=== PATIENT | female | born 1960 | race Caucasian/White ===

== ENCOUNTER 2017-12-22 19:31 | Emergency (ER) | payer OTHER ==
[2017-12-22] MEDS: IBUPROFEN 600 MG TAB PO (22:32)
[2017-12-22] MEDS: ONDANSETRON (ODT) 4 MG TAB ODT (22:32)
== END 2017-12-22 23:00 | disposition home or self-care (01) ==
LOC: FTE 19:31
DX: B02.9 Zoster without complications (principal); E11.9 Type 2 diabetes mellitus without complications; Z79.84 Long term (current) use of oral hypoglycemic drugs
CPT/HCPCS: 99284; Z7502

== ENCOUNTER 2018-05-19 08:55 | Day surgery (SDC) | payer OTHER ==
[2018-05-19] MEDS ORDERED: MIDAZOLAM 1 MG/ML 2 ML INJ ×3 (11:41→11:42)
[2018-05-19] MEDS ORDERED: FENTAnyl 50 MCG/ML VIAL (11:42)
== END 2018-05-19 16:09 | disposition home or self-care (01) ==
LOC: GIL 08:55
DX: K29.30 Chronic superficial gastritis without bleeding (principal); K64.8 Other hemorrhoids; K44.9 Diaphragmatic hernia without obstruction or gangrene; K21.9 Gastro-esophageal reflux disease without esophagitis; E11.9 Type 2 diabetes mellitus without complications
CPT/HCPCS: 43239; 82962; 84703; 88305; 88312

== ENCOUNTER 2018-08-11 05:49 | Day surgery (SDC) | payer OTHER ==
[~2018-08-11 05:49] MED LIST: LACTATED RINGER'S 1,000 ML IV*
[2018-08-11] MEDS ORDERED: SEVOFLURANE 15 MIN (07:00)
[2018-08-11] MEDS ORDERED: FENTAnyl 50 MCG/ML VIAL (07:20)
[2018-08-11] MEDS ORDERED: PROPOFOL 20 ML (07:26)
[2018-08-11] MEDS ORDERED: LIDOCAINE 2% (SDV) 5 ML INJ (07:26)
[2018-08-11] MEDS ORDERED: FAMOTIDINE 20 MG INJ (07:27)
[2018-08-11] MEDS ORDERED: ONDANSETRON 4 MG INJ (07:27)
[2018-08-11] MEDS ORDERED: DEXAMETHASONE 4 MG/ML 5 ML INJ (07:27)
[2018-08-11] MEDS ORDERED: CEFAZOLIN 1 GM INJ ×2 (07:27→07:49)
[2018-08-11] MEDS ORDERED: HYDROmorphONE 1 MG/5 ML IV SYRINGE IV ×3 (08:43→09:00)
[2018-08-11] MEDS ORDERED: KETOROLAC 30 MG INJ (08:57)
[2018-08-11] MEDS ORDERED: MEPERIDINE 25 MG INJ (08:57)
[2018-08-11] MEDS ORDERED: FENTAnyl 50 MCG/ML VIAL IV ×2 (09:00)
[2018-08-11] MEDS ORDERED: OXYCODONE/ACETAMINOPHEN (5/325) TAB PO (09:00)
[2018-08-11] MEDS ORDERED: LABETALOL HCL 20MG INJ IV (09:00)
[2018-08-11] MEDS ORDERED: KETOROLAC 30 MG INJ IV (09:00)
[2018-08-11] MEDS ORDERED: hydrALAzine 20 MG INJ IV (09:00)
[2018-08-11] MEDS: HYDROmorphONE 1 MG/5 ML IV SYRINGE IV (09:20)
[2018-08-11] MEDS: MEPERIDINE 25 MG INJ IV (09:21)
[2018-08-11] MEDS: KETOROLAC 30 MG INJ IV (09:26)
[2018-08-11] MEDS: ONDANSETRON 4 MG INJ IV (10:07)
== END 2018-08-11 11:22 | disposition home or self-care (01) ==
LOC: SDS 05:49
DX: D25.0 Submucous leiomyoma of uterus (principal); N95.0 Postmenopausal bleeding; E11.9 Type 2 diabetes mellitus without complications
CPT/HCPCS: 58561; 82962; 88305

== ENCOUNTER 2018-08-15 07:41 | Emergency (ER) | payer OTHER ==
[2018-08-15 09:30] LABS: ADD MAN DIFF? NO
[2018-08-15 09:38] LABS: BASOPHILS % 0.5 % (0.0-2.0); EOSINOPHILS # 0.3 10^3/ul (0.0-0.5); EOSINOPHILS % 3.5 % (0.0-7.0); HEMOGLOBIN 14.5 g/dl (12.0-16.0); LYMPHOCYTES # 2.6 10^3/ul (0.8-2.9); LYMPHOCYTES % 33.9 % (15.0-51.0); MEAN CORPUSCULAR HEMOGLOBIN 29.5 pg (29.0-33.0); MEAN CORPUSCULAR HGB CONC 33.7 g/dl (32.0-37.0); MEAN CORPUSCULAR VOLUME 87.6 fl (82.0-101.0); MONOCYTE # 0.5 10^3/ul (0.3-0.9); MONOCYTES % 6.9 % (0.0-11.0); NEUTROPHIL # 4.2 10^3/ul (1.6-7.5); NEUTROPHILS % 55.1 % (39.0-77.0); PLATELET COUNT 268 10^3/UL (140-415); RED BLOOD COUNT 4.91 10^6/ul (4.20-5.40); RED CELL DISTRIBUTION WIDTH 12.2 % (11.5-14.5)
[2018-08-15 09:38] LABS: WHITE BLOOD COUNT 7.7 10^3/ul (4.8-10.8)
[2018-08-15 09:47] LABS: ADD UMIC YES; UR ASCORBIC ACID NEGATIVE (NEGATIVE); UR BILIRUBIN (Dip) NEGATIVE (NEGATIVE); UR BLOOD (Dip) 2+ mg/dL (NEGATIVE); UR CLARITY CLEAR (CLEAR); UR COLOR STRAW (YELLOW); UR GLUCOSE (Dip) 2+ mg/dL (NEGATIVE); UR KETONES (Dip) NEGATIVE (NEGATIVE); UR LEUKOCYTE ESTERASE (Dip) NEGATIVE Leu/ul (NEGATIVE); UR NITRITE (Dip) NEGATIVE (NEGATIVE); UR RBC 1 /HPF (0-5); UR SPECIFIC GRAVITY (Dip) 1.009 (1.003-1.030); UR TOTAL PROTEIN (Dip) NEGATIVE (NEGATIVE); UR UROBILINOGEN (Dip) NEGATIVE (NEGATIVE); UR WBC 1 /HPF (0-5)
[2018-08-15 09:57] LABS: ALANINE AMINOTRANSFERASE 77 IU/L (13-69); ALBUMIN 4.6 g/dl (3.3-4.9); ALBUMIN/GLOBULIN RATIO 1.27; ALKALINE PHOSPHATASE 164 IU/L (42-121); ANION GAP 15 (5-13); ASPARTATE AMINO TRANSFERASE 34 IU/L (15-46); BILIRUBIN,INDIRECT 0.4 mg/dl (0-1.1); BILIRUBIN,TOTAL 0.4 mg/dl (0.2-1.3); BLOOD UREA NITROGEN 13 mg/dl (7-20); CARBON DIOXIDE 24 mmol/L (21-31); CHLORIDE 104 mmol/L (97-110); CREATININE 0.41 mg/dl (0.44-1.00); Estimated GFR > 60 mL/min (>60); GLUCOSE 245 mg/dl (70-220); LIPASE 89 U/L (23-300); POTASSIUM 4.1 mmol/L (3.5-5.1); SODIUM 143 mmol/L (135-144); TOTAL PROTEIN 8.2 g/dl (6.1-8.1)
== END 2018-08-15 11:14 | disposition home or self-care (01) ==
LOC: FTE 11:14
DX: N93.9 Abnormal uterine and vaginal bleeding, unspecified (principal); I10 Essential (primary) hypertension; E11.65 Type 2 diabetes mellitus with hyperglycemia; R20.2 Paresthesia of skin; D25.9 Leiomyoma of uterus, unspecified; Z79.84 Long term (current) use of oral hypoglycemic drugs; Z87.891 Personal history of nicotine dependence; Z98.890 Other specified postprocedural states
CPT/HCPCS: 36415; 76856; 80053; 81001; 83690; 85025; 99284-25